=== PATIENT | female | born 2000 | race Two or more races ===

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

== ENCOUNTER 2023-01-31 00:57 | Emergency (ER) | payer MEDICAID ==
[~2023-01-31] VITALS: Ht 160 cm; Wt 118.0 kg
[2023-01-31 02:29] VITALS: BP 148/88
[2023-01-31 03:04] LABS: Urine Bacteria FEW /hpf (None Seen); Urine Blood Negative /uL (Negative); Urine Specific Gravity 1.021 (1.001-1.035); Urine WBC 5 /hpf (0 - 5)
[2023-01-31] MEDS ORDERED: MICO2CRE45 VA (03:30)
== END 2023-01-31 03:34 | disposition home or self-care (01) ==
LOC: ER 00:57
DX: B37.31 Acute candidiasis of vulva and vagina (principal); Z79.899 Other long term (current) drug therapy
CPT/HCPCS: 81001; 81025; 87070; 87077; 87186; 87210

== ENCOUNTER 2023-07-08 15:45 | Emergency (ER) | payer MEDICAID ==
[~2023-07-08] VITALS: Ht 160 cm; Wt 121.9 kg
[~2023-07-08 15:45] MED LIST: MICO2CRE45 VA
[2023-07-08] MEDS ORDERED: ONDANSETRON ODT 4 MG TAB PO ONE (16:00)
[2023-07-08 17:07] LABS: Basophils # (auto) 0 10 ^3/uL (0-0.2); Eosinophils % (auto) 5.5 % (0.0-7.0); Hemoglobin 15.3 g/dL (12.2-16.2); Lymphocytes # (auto) 2.3 10 ^3/uL (0.4-5.4); Monocytes # (auto) 1.2 10 ^3/uL (0-1.3); Nucleated Red Blood Cells % 0.3 %
[2023-07-08 17:08] LABS: Basophils % (auto) 0.3 % (0.0-2.0); Eosinophils # (auto) 0.6 10 ^3/uL (0-0.8); Hematocrit 45.7 % (36.0-46.0); Lymphocytes % (auto) 19.7 % (10.0-50.0); Mean Corpuscular Hemoglobin 27.1 pg (28.0-32.0); Mean Corpuscular Hgb Conc. 33.5 g/dL (32.0-36.0); Mean Corpuscular Volume 80.8 fL (80.0-100.0); Monocytes % (auto) 10.6 % (0.0-12.0); Neutrophils # (auto) 7.5 10 ^3/uL (1.6-8.6); Neutrophils % (auto) 63.9 % (37.0-80.0); Red Blood Cells 5.66 10^6/uL (4.0-5.20); Red Cell Distribution Width 14.2 % (11.8-14.3); White Blood Cell 11.7 10^3/uL (4.4-10.8)
[2023-07-08 17:13] LABS: Urine Bacteria NONE SEEN /hpf (None Seen); Urine Blood Negative /uL (Negative); Urine Clarity Clear (Clear); Urine Color Yellow (Yellow); Urine Mucus FEW (None Seen); Urine Protein, UAD TRACE (Negative); Urine Specific Gravity 1.036 (1.001-1.035); Urine WBC 4 /hpf (0 - 5)
[2023-07-08 17:23] LABS: Alanine Aminotransferase 39 U/L (7-40); Albumin 4.6 g/dL (3.2-4.8); Alkaline Phosphatase 128 U/L (46-116); Anion Gap 8 (5-15); Aspartate Aminotransferase 27 U/L (13-40); BUN/Creatinine Ratio 11.5 (10.0-20.0); Blood Urea Nitrogen 7 mg/dL (9-23); Calcium 9.3 mg/dL (8.7-10.4); Carbon Dioxide 23 mmol/L (20-30); Chloride 107 mmol/L (98-107); Glucose 119 mg/dL (74-106); Lipase 43 U/L (12-53); Potassium 3.8 mmol/L (3.5-5.1); Sodium 138 mmol/L (136-145)
[2023-07-08 17:24] LABS: Bilirubin, Total 0.5 mg/dL (0.2-1.0); Total Protein 7.6 g/dL (5.7-8.2)
[2023-07-08 19:25] LABS: Rapid Influenza A Negative (Negative); Rapid Influenza B Negative (Negative)
[2023-07-08 19:32] LABS: COVID19 ANTIGEN SOFIA FIA POSITIVE (NEGATIVE)
[2023-07-08] MEDS ORDERED: ACET500T58 PO (19:56)
[2023-07-08] MEDS ORDERED: NITR-87 PO (19:56)
[2023-07-08] MEDS ORDERED: BENZ100C97 PO (19:56)
[2023-07-08] MEDS ORDERED: LORA10CA PO (19:56)
[2023-07-08 20:12] VITALS: BP 149/91; PULSE 100; RESP 20; TEMP 98.1; O2SAT 97
== END 2023-07-08 20:16 | disposition home or self-care (01) ==
LOC: ER 15:45
DX: U07.1 COVID-19 (principal); N39.0 Urinary tract infection, site not specified; Z79.899 Other long term (current) drug therapy
CPT/HCPCS: 36415; 80053; 81001; 81025; 83690; 85025; 87426; 87804; 99283; Q0162

== ENCOUNTER 2025-04-04 18:40 | Emergency (ER) | payer MEDICAID ==
[~2025-04-04] VITALS: Ht 160 cm; Wt 127.0 kg
[~2025-04-04 18:40] MED LIST changes: +ACET500T58 PO; +BENZ100C97 PO; +LORA10CA PO; +NITR-87 PO
[2025-04-04] MEDS: KETOROLAC TROMETH 60MG/2ML VIAL IM ONE (20:05)
--- NOTE | 2025-04-04 21:17 | DVH ---
INDICATION: right side low back pain COMPARISON: None TECHNIQUE: 3 views of the lumbar spine were obtained. FINDINGS: The lumbar vertebral alignment is normal. The intervertebral disc spaces are well-maintained. No significant facet arthropathy is noted. No acute fracture, vertebral compression deformity or aggressive osseous lesions. The paravertebral soft tissues are grossly unremarkable. IMPRESSION: 1. No acute fracture.
[2025-04-04 21:34] LABS: Urine Protein, UAD Negative (Negative)
[2025-04-04] MEDS ORDERED: BACDST PO (22:10)
--- NOTE | 2025-04-04 22:10 | ED.PDOC ---
General HPI Comments PATIENT REPORTS LOWER BACK PAIN X 2 MONTHS. PATIENT HAS HX OF SLIPPED DISK ACCORDING TO PCP. PATIENT REPORTS PAIN SHARP CONSTANT AND HARD TO MOVE AROUND. Denies numbness, weakness, loss of bowel bladder control or saddle anesthesia Chief Complaint: Back Pain Time Seen by MD: 18:48 Primary Care Provider: MAYA Barr notes: Nurses Notes, Medications, Allergies Allergies: Coded Allergies: NO KNOWN ALLERGIES (Unverified , 07/15/19) Home Meds Active Scripts Sulfamethoxazole W/Trimethopri (Bactrim Ds Tablet) 1 Tab Tb, 1 TAB PO BID for 7 Days, #14 TAB Prov:ERMA GUARDADO PERSONAL SH[employer]PER 04/04/25 Acetaminophen (Acetaminophen) 500 Mg Tab, 500 MG PO Q4HP PRN, #30 TAB Prov:CHU MATHIS PAC 07/08/23 Benzonatate (Benzonatate) 100 Mg Cap, 1 CAP PO TID, #20 CAP Prov:CHU MATHIS PAC 07/08/23 Loratadine (Claritin) 10 Mg Cap, 10 MG PO DAILY for 14 Days, #14 CAP Prov:CHU MATHIS PAC 07/08/23 Nitrofurantoin Monohydrate Mac (Macrobid) 100 Mg Cap, 100 MG PO BID for 5 Days, #10 CAP Prov:CHU MATHIS PAC 07/08/23 Miconazole Nitrate (Miconazole Nitrate) 2 % Cre, 2 % VA DAILY for 7 Days, #1 CRE Prov:RIP GALEANA PERSONAL SHOPPER 01/31/23 Information Source: Patient Mode of Arrival: Ambulatory Past Medical History PAST MEDICAL HISTORY: Denies Surgical History: Denies all surgeries LOCAL [employer]IVER History: Denies all LOCAL [employer]IVER Hx Family History Family History: Reviewed,noncontributory to illness Social History Smoker: Non-Smoker Alcohol: Denies ETOH Use Drugs: Marijuana Lives In: Home Constitutional: denies: chills, diaphoresis, fatigue, fever, malaise, sweats, weakness, others EENTM: denies: blurred vision, double vision, ear bleeding, ear discharge, ear drainage, ear pain, ear ringing, eye pain, eye redness, hearing loss, mouth pain, mouth swelling, nasal discharge, nose bleeding, nose congestion, nose pain, photophobia, tearing, throat pain, throat swelling, voice changes, others Respiratory: denies: cough, hemoptysis, orthopnea, SOB at rest, shortness of breath, SOB with excertion, stridor, wheezing, others Cardiovascular: denies: chest pain, dizzy spells, diaphoresis, Dyspnea on exertion, edema, irregular heart beat, left arm pain, lightheadedness, palpitations, PND, syncope, others Gastrointestinal: reports: abdominal pain; denies: abdomen distended, blood streaked bowels, constipated, diarrhea, dysphagia, difficulty swallowing, hematemesis, melena, nausea, poor appetite, poor fluid intake, rectal bleeding, rectal pain, vomiting, others Genitourinary: denies: abnormal vagina bleeding, burning, dyspareunia, dysuria, flank pain, frequency, hematuria, incontinence, pain, , vagina discharge, urgency, others Neurological: denies: dizziness, fainting, headache, left sided numbness, left sided weakness, numbness, paresthesia, pre-existing deficit, right sided numbness, right sided weakness, seizure, speech problems, tingling, tremors, weakness, others Musculoskeletal: reports: back pain; denies: gout, joint pain, joint swelling, muscle pain, muscle stiffness, neck pain, others Integumetry: denies: bruises, change in color, change in hair/nails, dryness, laceration, lesions, lumps, rash, wounds, others Allergic/Immunocompromised: denies: Difficulty Healing, Frequent Infections, Hives, Itching, others Hematologic/Lymphatic: denies: anemia, blood clots, easy bleeding, easy bruising, swollen glands, others Endocrine: denies: excessive hunger, excessive sweating, excessive thirst, excessive urination, flushing, intolerance to cold, intolerance to heat, unexplained weight gain, unexplained weight loss, others Psychiatric: denies: anxiety, bipolar disorder, depression, hopeless, panic disorder, schizophrenia, sleepless, suicidal, others Physical Exam General Appearance: No Apparent Distress, Normal HEENT: Normal ENT Inspection, Pharynx Normal, TMs Normal Neck: Full Range of Motion Respiratory: Lungs Clear, No Respiratory Distress, Normal Breath Sounds Cardiovascular: No Murmur, Normal Peripheral Pulses, Regular Rate/Rhythm Breast Exam: Deferred Gastrointestinal: Distended, No Organomegaly, No Pulsatile Mass, Normal Bowel Sounds, Soft, Tenderness (Right lower quadrant) Genitalia: Deferred Pelvic: Deferred Rectal: Deferred Extremities: Normal capillary refill, Normal range of motion, Non-tender, No pedal edema Musculoskeletal : Apperance: Normal Neurologic: Alert, No Motor Deficits, Normal Affect, Normal Mood, No Sensory Deficits Cerebellar Function: Normal Reflexes: NOT DONE Skin: Dry, Normal Color, Warm Lymphatic: No Adenopathy Was a procedure done? Was a procedure done?: No Differential Diagnosis Kidney stone (Female): Appendicitis, Musculoskeletal pain, Strain, Urinary obstruction, Urolithiasis Kidney stone (Male): Pyelonephritis Urinary Problem (Female): UTI X-Ray, Labs, Meds, VS Vital Signs Date Time Temp Pulse Resp B/P (MAP) Pulse Ox O2 Delivery O2 Flow Rate FiO2 04/04/25 22:55 98.9 93 20 150/99 (116) 96 98.9 04/04/25 20:05 109 18 98 Room Air 04/04/25 20:05 100.0 109 18 153/99 (117) 98 100.0 04/04/25 18:46 99.1 112 17 144/79 98 99.1 Lab Test 04/04/25 20:00 Range/Units Urine Color Light-yellow Yellow Urine Clarity Clear Clear Urine pH 7.0 5.0-9.0 Urine Specific [place] 1.022 1.001-1.035 Urine Protein Negative Negative Urine Ketones Negative Negative Urine Blood Negative Negative /uL Urine Nitrite Negative Negative Urine Bilirubin Negative Negative Urine Urobilinogen 2 H Negative mg/dL Urine Leukocyte Esterase Negative Negative /uL Urine RBC 2 0 - 4 /hpf Urine Microscopic WBC 10 H 0-5 /HPF Urine Squamous Epithelial Cells Mod <5 /hpf Urine Bacteria None seen None Seen /hpf Urine Mucus Few None Seen Urine Glucose Normal Normal mg/dL Current Medications Medications (Trade) Dose Ordered Sig/Kirill Route Start Time Stop Time Status Last Admin Ketorolac Tromethamine (Toradol Injection) 60 mg ONCE ONCE IM 04/04/25 20:00 04/04/25 20:01 DC 04/04/25 20:05 Dexamethasone Sodium Phosphate (Decadron Injection) 10 mg ONCE ONCE IM 04/04/25 20:00 04/04/25 20:01 DC 04/04/25 20:05 Ceftriaxone Sodium (Rocephin) 1,000 mg ONCE ONCE IM 04/04/25 22:15 04/04/25 22:16 DC 04/04/25 22:49 X-Ray, Labs, Meds, VS Comment Lumbar spine shows no acute fractures osseous lesions or subluxations. Upon re- examination and discharge patient stated most of her pain is in her right lower quadrant abdomen moderate tenderness on exam patient with low-grade fever CT abdomen pelvis was ordered consider possible appendicitis CT resulted with no a cute findings. Likely 2nd to UTI patient given Rocephin 1 g IM Toradol 60 mg IM she does note improvement in pain requesting discharge at this time. We will script Bactrim twice daily x7 days consider possible early pyelo. Advised to rest increase p.o. fluids with electrolytes. [id number] Tylenol or Motrin as needed per labeled dosing instructions. Advised to follow up with her PCP in 2-3 days we discussed ER return precautions patient indicated understanding and she agrees with discharge plan of care. Time of 1ST Reevaluation: 18:50 Reevaluation 1ST: Unchanged Time of 2ND Reevaluation: 22:10 Reevaluation 2ND: Improved Patient Education/Counseling: Diagnosis, Treatment, Prognosis, Need For Follow Up Family Education/Counseling: No Family Present SEPSIS Sepsis Screen Date sepsis recognized/suspect: Apr 04, 2025 Time Sepsis recognized/suspect: 1844 Recent Procedure: No On Antibiotic Therapy: No Respiratory Rate >20: No Heart Rate >90: No Temp<36 C (96.8 F) or >38.3 C: No SBP <90 or MAP <65 mmHG: No New Acute Mental Status Change: No Is the patient on CPAP, BIPAP,: No Physician Orders Lumbar Spine 3 View (04/04/25 19:59) Ct Ab Pel Wo Con-No Oral Or Iv (04/04/25 22:17) Vital Signs Date Time Temp Pulse Resp B/P (MAP) Pulse Ox O2 Delivery O2 Flow Rate FiO2 04/04/25 22:55 98.9 93 20 150/99 (116) 96 98.9 04/04/25 20:05 109 18 98 Room Air 04/04/25 20:05 100.0 109 18 153/99 (117) 98 100.0 04/04/25 18:46 99.1 112 17 144/79 98 99.1 Medications Medications Dose Ordered Sig/Kirill Route Start Time Stop Time Status Last Admin Dose Admin Ceftriaxone Sodium 1,000 mg ONCE ONCE IM 04/04/25 22:15 04/04/25 22:16 DC 04/04/25 22:49 Dexamethasone Sodium Phosphate 10 mg ONCE ONCE IM 04/04/25 20:00 04/04/25 20:01 DC 04/04/25 20:05 Ketorolac Tromethamine 60 mg ONCE ONCE IM 04/04/25 20:00 04/04/25 20:01 DC 04/04/25 20:05 Departure 1 Departure Time of Disposition: 22:10 Impression: Primary Impression: UTI (urinary tract infection) Qualified Codes: N30.01 - Acute cystitis with hematuria Disposition: HOME / SELF CARE / HOMELESS Condition: Stable e-Prescriptions Sulfamethoxazole W/Trimethopri (Bactrim Ds Tablet) 1 Tab Tb 1 TAB PO BID for 7 Days, #14 TAB Prov: ERMA GUARDADO 04/04/25 Discharged With: Self Critical Care Note Critical Care Time?: No Stability Stability form required: ERMA Reddy Apr 04, 2025 22:10
[2025-04-04] MEDS: cefTRIAXone SOD 1,000 MG VL IM ONE (22:49)
[2025-04-04 22:55] VITALS: BP 150/99; PULSE 93; RESP 20; TEMP 98.9; O2SAT 96
--- NOTE | 2025-04-04 23:13 | DVH ---
Exam: CT CT AB PEL WO CON-NO ORAL OR IV History: rlq abd pain Comparison Study: CT ABD PELVIS WO CONTRAST on DOS: 12/29/20 Technique: Multidetector spiral CT of the abdomen was performed from lung bases to pubic symphysis. I maging was performed without IV contrast. Axial, coronal and sagittal multiplanar reformats were obta ined from the axial data set by the technologist. Radiation Dose : 1. Abdomen/Pelvis: CTDIvol 27.73 mGy, DLP 1843.31 mGy*cm. Findings: Evaluation of solid organs is limited due to lack of intravenous contrast use. Lung Bases: No acute or significant lung base finding. Normal heart size. No pleural or pericardial effusion. Liver: The liver is normal in size. No focal lesions. Gallbladder and Biliary Tree: Unremarkable Spleen: Unremarkable Pancreas: The pancreas is grossly normal in appearance. Adrenal Glands: Unremarkable Kidneys: Kidneys are grossly normal without calculi or hydronephrosis. Bladder: Grossly unremarkable for degree of distention. Bowel: The stomach is grossly normal in appearance. Small bowel and colon are normal in caliber and d istribution. The appendix is normal. Ascites: Absent Lymphadenopathy: No mesenteric, retroperitoneal or periportal lymphadenopathy. Abdominal Wall and Mesentery: Unremarkable. Vasculature: The visualized abdominal aorta is normal in size and caliber. Evaluation of abdominal a nd pelvic vessels is limited due to lack of intravenous contrast. Pelvic Organs: Unremarkable Musculoskeletal: No aggressive focal bony lesions, acute fractures or dislocation. IMPRESSION: 1. No acute abdominal or pelvic findings. Radiation optimization: All CT scans at this facility use at least one of these dose optimization yocasta hniques: automated exposure control mA and/or kV adjustment per patient size (includes targeted exam s where dose is matched to clinical indication) or iterative reconstruction.
== END 2025-04-04 23:30 | disposition home or self-care (01) ==
LOC: ER 18:40
DX: N39.0 Urinary tract infection, site not specified (principal)
CPT/HCPCS: 72100; 74176; 81001; 96372; 99285; J0696; J1100; J1885